=== PATIENT | female | born 1940 | race Caucasian/White ===

== ENCOUNTER → 2017-07-01 | Outpatient (CLI) | payer MEDICARE | END | disposition home or self-care (01) | LOC: KCIC MRI 10:34 | DX: S33.140A Subluxation of L4/L5 lumbar vertebra, initial encounter (principal); M43.06 Spondylolysis, lumbar region; M25.78 Osteophyte, vertebrae; X58.XXXA Exposure to other specified factors, initial encounter; Y93.89 Activity, other specified; Y92.89 Other specified places as the place of occurrence of the external cause; Y99.8 Other external cause status | CPT/HCPCS: 72148 ==

== ENCOUNTER → 2017-08-09 | Outpatient (CLI) | payer MEDICARE | END | disposition home or self-care (01) | LOC: PNCL 09:09 | DX: M79.662 Pain in left lower leg (principal); M81.0 Age-related osteoporosis without current pathological fracture; E11.9 Type 2 diabetes mellitus without complications; I50.9 Heart failure, unspecified; I44.7 Left bundle-branch block, unspecified; R06.02 Shortness of breath | CPT/HCPCS: G0463 ==

== ENCOUNTER → 2021-05-10 | Outpatient (CLI) | payer MEDICARE ==
[~2021-05-10] MED LIST: ASCO60LO5 PO; CA C1TAB62 PO; CHOL10003 PO; CYAN-25 PO; FLAX1CAP PO; GLUC100018 PO; LACT1CAP39 PO; LEVO25TA55 PO; MULT-658 PO; PANT20TA2 PO
--- NOTE | 2021-05-10 14:11 | KCIC ---
EXAM: Right knee, 4 views. HISTORY: Pain. COMPARISON: None. FINDINGS: 4 views of the right knee are obtained. There is severe patellofemoral compartment joint sp tyler narrowing with subchondral sclerosis, subchondral cyst formation and spurring. There is mild medi al and lateral compartment spurring. There is trace joint fluid. There is no fracture, dislocation or subluxation. IMPRESSION: 1. 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 2. No acute osseous finding. Electronically signed by: Krista Howard MD (05/10/2021 2:09 PM) [id number]
--- NOTE | 2021-05-10 14:40 | KCIC ---
EXAM: Lumbar spine MRI without contrast. HISTORY: Pain. TECHNIQUE: Multiplanar, multisequence magnetic resonance imaging of the lumbar spine was performed wi thout contrast. COMPARISON: None. FINDINGS: There is grade 1-2 anterolisthesis of L5 on S1 measuring approximately 1.3 cm with associated pars in tra-articular is defects. There is mild retrolisthesis at the remainder of the lumbar levels. There i s lumbar scoliosis. There is multilevel endplate remodeling with disc space narrowing, disc desiccati on, osteophytosis and Schmorl's node formation. There are few osseous hemangiomas. There is no suspic ious osseous lesion. There is no acute or subacute fracture. The conus terminates at L1. At T12-L1, there is a disc bulge and endplate remodeling. There is mild left facet arthropathy. There is no stenosis. At L1-L2, there is a disc bulge and endplate remodeling. There is no stenosis. At L2-L3, there is a disc bulge and endplate osteophytosis. There is moderate bilateral facet arthrop athy. There is hypertrophy of the ligament of flavum. There is mild bilateral foraminal stenosis. The re is mild central canal stenosis. At L3-L4, there is a disc bulge and endplate osteophytosis. There is severe right and mild left facet arthropathy. There is hypertrophy of the ligamentum flavum. There is severe right and mild left fora bethanie stenosis. There is moderate central canal stenosis. At L4-L5, there is a disc bulge and endplate osteophytosis. There is moderate bilateral facet arthrop athy. There is no stenosis. At L5-S1, there is a broad-based posterior central disc protrusion and slight superior extrusion and there are bilateral foraminal to extra foraminal disc osteophyte complexes superimposed on a disc bul ge and endplate osteophytosis. There is moderate bilateral facet arthropathy. There is grade 1 listhe sis with pars defects. There is severe bilateral foraminal stenosis. There is moderate to severe cent ral canal stenosis. IMPRESSION: 1. Grade 1-2 anterolisthesis with associated pars defects at L5-S1. The combination of this finding a nd degenerative changes results in severe bilateral foraminal and moderate to severe central canal st enosis. 2. Degenerative change throughout the remainder of the lumbar spine, described in detail above. This is associated with mild bilateral foraminal and central canal stenosis at L2-L3 and severe right and mild left foraminal and moderate central canal stenosis at L3-L4. Electronically signed by: Krista Howard MD (05/10/2021 2:38 PM) [id number]
== END ==
LOC: KCIC MRI 12:19
PROVIDERS: ATTEND Internal Medicine
DX: M17.11 Unilateral primary osteoarthritis, right knee (principal); M76.891 Other specified enthesopathies of right lower limb, excluding foot; M25.861 Other specified joint disorders, right knee; M47.26 Other spondylosis with radiculopathy, lumbar region; M43.17 Spondylolisthesis, lumbosacral region; M48.8X7 Other specified spondylopathies, lumbosacral region; M51.27 Other intervertebral disc displacement, lumbosacral region; D18.09 Hemangioma of other sites; M48.07 Spinal stenosis, lumbosacral region; M43.07 Spondylolysis, lumbosacral region; M41.86 Other forms of scoliosis, lumbar region; M25.78 Osteophyte, vertebrae; M51.46 Schmorl's nodes, lumbar region
CPT/HCPCS: 72148; 73564

== ENCOUNTER → 2021-06-30 | Outpatient (CLI) | payer MEDICARE ==
[~2021-06-30] MED LIST changes: +DEXAMETHASONE PRES.FREE 10 MG/ML VIAL. ONE; +IOHEXOL 180 MG/ML 10 ML VIAL. ONE
--- NOTE | 2021-06-30 13:43 | PDOC4 ---
Procedure Note: ICD 10 Code: ICD 10 Code: M54.17 M51.87 M4 8.07 Procedure Note: Patient was consented for lumbar epidural steroid injection with fluoroscopic guidance. Risks were discussed including but not limited to: Bleeding, infection, possibility of epidural hematoma and subsequent neurological compromise, dural puncture, headaches, spinal cord and/or nerve damage, side effects of steroid medication, and poor results regarding pain control. Patient understands and wished to proceed. Procedure is lumbar epidural steroid injection under local anesthetic using carolyn rile prep and drape at the L5-S1 level using C-arm fluoroscopic guidance in both AP and lateral views medications injected is 20 mg dexamethasone +10mL preservative-free normal saline and 2 mL contrast- condition at discharge is stable patient tolerated procedure well had no complications. JEANETH SPIVEY MD Jun 30, 2021 13:43
--- NOTE | 2021-06-30 13:43 | PDOC1 ---
INITIAL PAIN CONSULT DATE OF SERVICE: DOS: DATE: 06/30/21 TIME: 13:36 CHIEF COMPLAINT: Chief Complaint: Low back and right lower extremity pain HISTORY OF PRESENT ILLNESS: 81-year-old female presents with history of pain low back right lower extremity for several months now not resolve any specific injury or accident that she is aware but she has been getting worse with time pain radiating from the low back into the right lower extremity posterior gluteus posterior thigh posterior calf and lateral thigh at times patient reports also into the foot involving the lateral aspect of the toes patient reports is worse with walking standing changing positions describes as throbbing in the back radiating the leg aching in the back and the leg again worse with activity patient reports it wakes her from sleep about 3 times a night does not affect her bowel bladder control does affect her ability to walk using a cane which she has with her today and using that in her left hand. Patient reports she is had physical therapy multiple times over the past 4 years as well as chiropractic treatment and just got done doing some decompression treatment with her chiropractic which was not helpful significantly patient reports exercise Tylenol does decrease the pain to moderate since she took that earlier this morning. Patient reports her disability rating 0-10 10 endorses 8 with family home was possibilities and social activity 10 with recreation occupation social behavior 5 with self-care and life support activities. Patient did have an MRI of the lumbar spine dated May 10, 2021 showing L4-5 disc bulge with endplate osteophytosis L5-S1 shows broad-based posterior central disc protrusion and slight superior extrusion with bilateral foraminal to extraforaminal disc osteophyte complex superimposed on a disc bulge and endplate osteophytosis with moderate bilateral facet arthropathy and severe bilateral foraminal stenosis with moderate to severe central canal stenosis. Patient reports no loss of motor function with significant fatigability and weakness in the right lower extremity with walking standing even more than 5 to 10 minutes where he must sit down to rest. Patient reports no bowel or bladder incontinence. PAST MEDICAL HISTORY: PMH: Arthritis, sleep apnea PREVIOUS SURGERIES: Past Surgical Hx: Left total knee replacement 2017, tonsillectomy at age 10, D&C in 2001, bilateral cataract extractions 2001. CURRENT MEDICATIONS: Current Meds: Active Scripts Medications Dose Route/Sig Max Daily Dose Days Date Category Glucosamine (Glucosamine Sulfate 2KCL) 1,000 Mg Tablet 1,000 Mg PO 08/09/17 Reported Citracal Soft Chew (Ca Carbonate/Vitamin D3/Vit K) 1 Each Tab.chew 1 Each PO 08/09/17 Reported Flax Seed Oil 1,300 Mg Softgel (Flaxseed/Omega3,6,9/Fatty Acid) 1 Each Capsule 1 Each PO 08/09/17 Reported Probiotic (Lactobacillus Combination No.4) 1 Each Capsule 1 Each PO 08/09/17 Reported Vitamin B-12 (Cyanocobalamin (Vitamin B-12)) 1,000 Mcg Tablet 1 Tab PO DAILY 08/09/17 Reported Vitamin C (Ascorbic Acid) 60 Mg Lozenge Unknown Dose PO 08/09/17 Reported Vitamin D3 (Cholecalciferol (Vitamin D3)) 1,000 Unit Tablet 1 Tab PO DAILY 08/09/17 Reported Centrum Silver Tablet (Multivits-Min/Fa/Lycopene/Lut) 1 Each Tablet 1 Each PO 08/09/17 Reported Protonix (Pantoprazole Sodium) 20 Mg Tablet.dr 1 Tab PO DAILY 08/09/17 Reported Synthroid (Levothyroxine Sodium) 25 Mcg Tablet Unknown Dose PO DAILYAC 08/09/17 Reported ALLERGIES; Allergies: Coded Allergies: NSAIDS (Non-Steroidal Anti-Inflamma (Verified Allergy, Intermediate, Nausea, 08/09/17) Sulfa (Sulfonamide Antibiotics) (Verified Allergy, Intermediate, Rash, 08/09/17) FAMILY HISTORY: Family Hx: Heart disease and diabetes SOCIAL HISTORY: Social Hx: Patient does not anais alcohol does not smoke says any illegal licit recreational drugs is lives on her own at home lives locally in [facility] REVIEW OF SYSTEMS: ROS: Positive for those items mentioned in history of present illness, all systems are reviewed, otherwise negative ,and are complete full and well-documented on patient's chart. PHYSICAL EXAM: VS: Blood pressure is 177/58 pulse 63 respirations 18 temperature 98.2 F height is 5 feet 6 inches weight is 220 pounds PE: PHYSICAL EXAMINATION: GENERAL: The patient is awake, alert, oriented, appropriate, very pleasant in demeanor HEENT: Shows normocephalic, atraumatic. Extraocular movements are intact and symmetrical. Oral cavity: Mucous membranes moist and pink. NECK: Shows anterior throat supple without palpable lymphadenopathy noted. Swallow reflex symmetrical. CHEST: Shows normal on inspection. Breath sounds are clear bilaterally, no rales rhonchi or wheezes auscultated. HEART: Shows S1, S2 clear. No murmurs auscultated. ABDOMEN: Soft, nontender, nondistended. No palpable organomegaly is noted. BACK: Shows spine grossly in the midline. Normal-appearing cervical lordotic curvature. There is mildly increased thoracic kyphosis, some flattening of the lumbar lordotic curvature. Lumbar paraspinous muscles show symmetrical on inspection, on palpation shows some moderate tenderness diffusely throughout the upper, middle and lower distribution of the paraspinous muscles bilaterally and also into the lower thoracic paraspinous musculature, firm and tender, but without specific trigger points, without radiation of pain. The patient has good rotational motion of the lumbar spine, both laterally as well as extension and flexion without significant difficulty. No tenderness over the spinous processes, sacrum or sacroiliac regions. EXTREMITIES: Lower extremities show deep tendon reflexes 1+ in the patellar and tendo calcaneus tendons. Motor exam is 4 on a scale of 5 with right dorsiflexion, extension, quadriceps and hamstring flexion and 5/5 on the left. Peripheral pulses are 1 posterior tibial. No peripheral edema is noted bilaterally. Lower extremities are warm and dry to touch, equal in color and appearance. Straight leg raise noted to be positive on the right about 40 degrees, left side is negative. Gaenslen's and Alexsander's maneuvers are negative bilaterally. The patient is able to stand, stand on her toes without significant difficulty or loss of balance walks with a slight favoring gait and does appear to favor the right lower extremity significantly using a cane in her left hand to ambulate. SKIN: Shows warm and dry, good turgor. No edema. No sores, rashes or bruising throughout. IMPRESSION: Impression: 81-year-old female with 3-month history low back left lower extremity pain in a radicular fashion. MRI scan lumbar spine as noted Arthritis Plan: Options were discussed with patient occluding continued physical therapies interventional techniques and medical management. Patient would like to pursue interventional techniques. We discussed a lumbar epidural steroid injection using descriptions as well as anatomical models to describe the procedure. Risks were discussed including but not limited to: Bleeding, infection, possibility of epidural hematoma and subsequent neurological compromise, dural puncture, headaches, spinal cord and/or nerve damage, side effects of steroid medication, and poor results regarding pain control. Patient understands and wished to proceed. Patient will return to clinic in approximately 2 weeks for follow-up, was counseled as to return appointment, activity level, and side effect to be aware of. Procedure is lumbar epidural steroid injection under local anesthetic using sterile prep and drape at the L5-S1 level using C-arm fluoroscopic guidance in both AP and lateral views medications injected is 20 mg dexamethasone +10mL preservative-free normal saline and 2 mL contrast- condition at discharge is stable patient tolerated procedure well had no complications. JEANETH SPIVEY MD Jun 30, 2021 13:43
== END | disposition home or self-care (01) ==
LOC: PNCL 10:47
PROVIDERS: ATTEND Anesthesiology
DX: M51.17 Intervertebral disc disorders with radiculopathy, lumbosacral region (principal); M48.07 Spinal stenosis, lumbosacral region; Z79.899 Other long term (current) drug therapy; Z88.8 Allergy status to other drugs, medicaments and biological substances
CPT/HCPCS: 62323; 99214; J1100; Q9965; G0463